=== PATIENT | male | born 1995 | race Caucasian/White ===

== ENCOUNTER 2017-02-01 17:43 | Emergency (ER) | payer BC ==
--- NOTE | 2017-02-01 18:11 | C.PDOC ---
History Of Present Illness A 21 year old male, whose past medical history includes eczema, presents to the emergency department for a bilateral hand rash. 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 The patient denies any fever, chest pain, shortness of breath, abdominal pain, or any other complaints at this time. Chief Complaint (Nursing): Finger,Hand,&Wrist History Per: Patient History/Exam Limitations: no limitations Onset/Duration Of Symptoms: Hrs (x earlier today ) Current Symptoms Are (Timing): Worse PMH Reviewed: Historical Data - Family History Family History: States: No Known Family Hx - Immunization History Hx Tetanus Toxoid Vaccination: Yes Hx Influenza Vaccination: Yes Hx Pneumococcal Vaccination: Yes Review Of Systems Except As Marked, All Systems Reviewed And Found Negative. Constitutional: Negative for: Fever Cardiovascular: Negative for: Chest Pain Respiratory: Negative for: Shortness of Breath Gastrointestinal: Negative for: Abdominal Pain Skin: Positive for: Rash (bilateral to hands) Pedatric Physical Exam - Physical Exam Appears: Well Appearing, Non-toxic, No Acute Distress Skin: Normal Color, Warm, Dry, Rash (erythematous patches, small blisters, excoriations) Eye(s): bilateral: Normal Inspection, PERRL, EOMI Lymphatic: Deferred Gastrointestinal/Abdominal: Normal Exam Extremity: Normal ROM ED Course And Treatment O2 Sat by Pulse Oximetry: 98 Medical Decision Making Medical Decision Making: Treatment Plan: Progress Notes: Disposition - Disposition Referrals: Clarence Nieto [Staff Provider] - Disposition: HOME/ ROUTINE Disposition Time: 18:22 Condition: STABLE Additional Instructions: Follow up with PMD and Assistant Plant Control Operator within 3-4 days. Return to ED if feel worse. Please wear protective gloves when working. Use Eucerin cream every time after washing your hands. Prescriptions: Pramoxine HCl [Anti-Itch] 1 appl TP QID #222 ml Mupirocin 2% Ointment [Bactroban Ointment] 1 appl TP BID #1 tube Triamcinolone 0.025 % [Triamcinolone 0.025 % Cream] 1 appl TOP BID #1 tube Instructions: Dermatitis (ED) Forms: [employer] (Setswana) - Clinical Impression Clinical Impression: Eczema of hand - Scribe Statement The provider has reviewed the documentation as recorded by the Scribe Tanya Lawler All medical record entries made by the Scribe were at my direction and personally dictated by me. I have reviewed the chart and agree that the record accurately reflects my personal performance of the history, physical exam, medical decision making, and the department course for this patient. I have also personally directed, reviewed, and agree with the discharge instructions and disposition.
[2017-02-01 18:14] VITALS: BP 121/76; PULSE 79; RESP 18; TEMP 98.7; O2SAT 98; BMI 23.6
== END 2017-02-01 18:35 | disposition home or self-care (01) ==
LOC: C.ER 17:43
DX: L30.9 Dermatitis, unspecified (principal)